=== PATIENT | female | born 1990 | race Hispanic/Latino ===

== ENCOUNTER 2018-12-28 12:00 | Emergency (ER) | payer OTHER | END 2018-12-28 12:21 | disposition home or self-care (01) | LOC: EDH 12:00 → EDSEX 12:00 → EDH 12:21 | DX: S80.812A Abrasion, left lower leg, initial encounter (principal); M25.512 Pain in left shoulder; M25.511 Pain in right shoulder; V43.51XA Car driver injured in collision with sport utility vehicle in traffic accident, initial encounter; Y93.89 Activity, other specified; Y92.488 Other paved roadways as the place of occurrence of the external cause; Y99.8 Other external cause status ==